=== PATIENT | female | born 1965 | race American Indian/Alaskan Native ===

== ENCOUNTER 2017-03-28 06:40 | Day surgery (SDC) | payer OTHER ==
[2017-03-28 07:21] VITALS: BMI 21.4
[2017-03-28 07:23] VITALS: TEMP 97.6
--- NOTE | 2017-03-28 09:18 | CP.SDSHP ---
Same Day Surgery H & P - History Proposed Procedure: colonoscopy Pre-Op Diagnosis: screening - Previous Medical/Surgical History Comments: depression - Allergies Allergies: Allergies No Known Allergies Allergy (Verified 03/28/17 07:20) - Physical Exam General Appearance: NAD Vital Signs: Vital Signs 03/28/17 03/28/17 07:22 07:39 Temperature 97.6 F Pulse Rate 80 80 Respiratory 20 Rate Blood Pressure 119/77 O2 Sat by Pulse 99 Oximetry Mental Status: Alert & Oriented x3 Neuro: WNL Heart: WNL Lungs: WNL GI: WNL - {Optional Preform as Required} Abdomen: WNL - Impression Pt. Evaluated Today:Candidate for Anesthesia & Procedure: Yes - Date & Time Date: 03/28/17 Time: 09:18 Short Stay Discharge - Short Stay Discharge Admitting Diagnosis/Reason for Visit: SCREENING Disposition: HOME/ ROUTINE Referrals: Cruz Caceres [Primary Care Provider] -
[2017-03-28] MEDS ORDERED: Lactated Ringer's 500 ML IV ONE (09:20)
[2017-03-28] MEDS ORDERED: Propofol 10 mg/ml Inj (20 ML) ONE ×3 (09:20→09:57)
[2017-03-28] MEDS ORDERED: Lidocaine Hydrochloride 5 ML INJ ONE (09:20)
[2017-03-28 10:28] VITALS: O2SAT 100
[2017-03-28 13:14] VITALS: BP 99/63; PULSE 73; RESP 13
== END 2017-03-28 11:30 | disposition home or self-care (01) ==
LOC: C.ENDO 06:40
PROVIDERS: ATTEND Internal Medicine Gastroenterology
DX: Z12.11 Encounter for screening for malignant neoplasm of colon (principal); D12.5 Benign neoplasm of sigmoid colon; D12.3 Benign neoplasm of transverse colon; K57.30 Diverticulosis of large intestine without perforation or abscess without bleeding; K64.1 Second degree hemorrhoids; F32.9 Major depressive disorder, single episode, unspecified; Z87.891 Personal history of nicotine dependence; Z98.51 Tubal ligation status